=== PATIENT | female | born 1985 | race Two or more races ===

== ENCOUNTER 2023-08-15 22:37 | Emergency (ER) | payer OTHER ==
[~2023-08-15] VITALS: Ht 177.8 cm; Wt 87.5 kg
[2023-08-15] MEDS ORDERED: LOSARTAN POTASS50 MG PO (22:47)
[2023-08-16 01:13] LABS: PH,URINE 5.5 (5.0-8.0); URINE APPEARANCE Clear; URINE BILIRRUBIN Negative (NEGATIVE); URINE BLOOD Negative; URINE COLOR Yellow; URINE GLUCOSE Negative (NEGATIVE); URINE LEUKOCYTE Negative; URINE NITRATE Negative; URINE PROTEIN Negative (NEGATIVE); URINE UROBILINOGEN 0.2 E.U./dl
[2023-08-16 01:14] LABS: HEMATOCRIT 36.8 % (36.0-45.00); HEMOGLOBIN 12.4 g/dL (12.0-15.00); MEAN CELL VOLUME 84.3 fL (80.00-100.00); MEAN CORPUSCULAR HEMOGLOBIN 28.4 pg (27.00-32.0); MEAN CORPUSCULAR HGB CONC 33.7 g/dl (32.0-36.0); PLATELET COUNT 275 K/uL (150-450); RED BLOOD COUNT 4.36 M/uL (4.00-6.00); RED CELL DISTRIBUTION WIDTH 13.9 % (11.5-14.5)
[2023-08-16 01:16] LABS: URINE BACTERIA 84.3 uL (0.0-1933); URINE RBC 3.8 uL (0.0-20.8); URINE WBC 9.4 uL (0.0-23.2)
[2023-08-16 01:40] LABS: INR < 0.93; PARTIAL THROMBOPLASTIN TIME 21.6 SECONDS (22.0-34.0); PROTHROMBIN TIME 9.8 SECONDS (9.0-11.5)
[2023-08-16 02:54] LABS: CALCIUM 8.3 mg/dL (8.5-10.1); CREATININE SERUM 0.78 mg/dL (0.55-1.02); GFR 81.8; POTASSIUM 4.33 mEq/L (3.5-5.1)
[2023-08-16] MEDS ORDERED: LABETALOL HCL100 MG PO ×2 (03:37→03:38)
== END 2023-08-16 03:43 ==
LOC: ER 22:38
PROVIDERS: General Practice
DX: O20.9 Hemorrhage in early pregnancy, unspecified (principal); O43.891 Other placental disorders, first trimester; O10.911 Unspecified pre-existing hypertension complicating pregnancy, first trimester; Z3A.10 10 weeks gestation of pregnancy